=== PATIENT | male | born 1990 | race Caucasian/White ===

== ENCOUNTER 2018-12-04 11:19 | Emergency (ER) | payer SELFPAY ==
[~2018-12-04] VITALS: Ht 165.1 cm; Wt 68.0 kg
[2018-12-04] MEDS ORDERED: BACTRIM DS1 TAB PO (11:39)
[2018-12-04] MEDS ORDERED: CEPHALEXIN500 M1 PO (11:39)
[2018-12-04 12:20] VITALS: BP 121/76
== END 2018-12-04 12:20 | disposition home or self-care (01) | DRG 603 ==
LOC: ED 11:19
PROC: 0H9DXZZ Drainage of Right Lower Arm Skin, External Approach (ICD-10-PCS; principal; 2018-12-04)
DX: L02.413 Cutaneous abscess of right upper limb (principal); L03.113 Cellulitis of right upper limb; B95.62 Methicillin resistant Staphylococcus aureus infection as the cause of diseases classified elsewhere; F17.210 Nicotine dependence, cigarettes, uncomplicated; R50.9 Fever, unspecified